=== PATIENT | male | born 2000 | race Caucasian/White ===

== ENCOUNTER 2024-08-15 21:51 | Emergency (ER) | payer BC ==
[2024-08-15] MEDS: Tetracaine HCl/PF 0.5% 4 ML Bottle EYEBOTH ONE (22:01)
[2024-08-15] MEDS: Fluorescein 1 MG Ophth Strip EYEBOTH ONE (22:01)
[2024-08-15] MEDS: Erythromycin Base 0.5% Ophth Oint 1 GM Tube EYELF ONE (22:48)
== END 2024-08-15 23:04 | disposition home or self-care (01) ==
LOC: MW.ED 21:51
DX: S05.02XA Injury of conjunctiva and corneal abrasion without foreign body, left eye, initial encounter (principal); Z79.899 Other long term (current) drug therapy; X58.XXXA Exposure to other specified factors, initial encounter; Y93.89 Activity, other specified
CPT/HCPCS: 99283; A9270; 99282; J3490

== ENCOUNTER 2025-06-10 11:15 | Emergency (ER) | payer OTHER, BC ==
[2025-06-10] MEDS: Diphtheria,Pertussis(Acell),Tetanus Vaccine 0.5 ML Syringe IM ONE (14:04)
== END 2025-06-10 14:55 | disposition home or self-care (01) ==
LOC: MW.ED 11:15
DX: S61.216A Laceration without foreign body of right little finger without damage to nail, initial encounter (principal); Z79.899 Other long term (current) drug therapy; W31.82XA Contact with other commercial machinery, initial encounter
CPT/HCPCS: 12001; 73140; 90471; 90715; 99283; J2003